=== PATIENT | female | born 1985 | race Caucasian/White ===

== ENCOUNTER → 2018-01-15 | Day surgery (SDC) | payer OTHER ==
--- NOTE | 2018-01-14 19:57 | History & Physical Pre-Op ---
General Information and HPI History of Present Illness: Patient is a 32-year-old 3 para 3 with chronic menorrhagia and presents today for D&C hysteroscopy and NovaSure ablation. She currently is using an IUD to control her bleeding however she is breaking through still having heavy menses. We will remove the IUD prior to the procedure. Allergies/Medications Allergies: Coded Allergies: No Known Allergies (01/14/18) Home Med list Docusate Sodium 100 MG CAPSULE 100 MG PO AT BEDTIME PRN STOOL SOFTENER Ibuprofen 800 MG TABLET 800 MG PO Q6P PRN PAIN SCALE 4-6 Oxycodone HCl/Acetaminophen (Percocet 5-325 MG Tablet) 1 EACH TABLET 1 TAB PO Q4P PRN PAIN SCALE 7-8 Past History Medical History Cardiovascular: hypertension Gastrointestinal: GERD Surgical History Pertinent Surgical History: cholecystectomy, Review of Systems Review of Systems Constitutional: Reports: no symptoms. EENTM: Reports: no symptoms. Cardiovascular: Reports: no symptoms. Respiratory: Reports: no symptoms. GI: Reports: no symptoms. Genitourinary: Reports: see HPI. Musculoskeletal: Reports: no symptoms. Skin: Reports: no symptoms. Neurological/Psychological: Reports: no symptoms. Hematologic/Endocrine: Reports: no symptoms. Immunologic/Allergic: Reports: no symptoms. All Other Systems: Reviewed and Negative Exam & Diagnostic Data Last 24 Hrs of Vital Signs/I&O Intake & Output 01/14 1600 01/14 0800 01/14 0000 Intake Total Output Total Balance Patient 225 lb Weight Physical Exam: HEENT: Normocephalic atraumatic Chest: Clear to auscultation bilaterally Cardiovascular: Normal S1-S2 abdomen: Obese soft nontender Pelvic: Deferred OR Extremities: Mild edema bilaterally Neurologic: Nonfocal Assessment/Plan Assessment/Plan: Menorrhagia Plan: IUD removal, D&C, hysteroscopy, NovaSure ablation As Ranked By This Provider Problem List: 1. Menorrhagia
[~2018-01-15] VITALS: Ht 157.5 cm; Wt 102.1 kg
[~2018-01-15] MED LIST: DOCUSATE SODIU100 M3 PO; IBUPROFEN800 M1 PO; PERCOCET 5-3251 EACH PO
--- NOTE | 2018-01-16 05:13 | ULTRASOUND REPORT ---
EXAMINATION: ULTRASOUND PELVIS/INTRAOPERATIVE ULTRASOUND CLINICAL INDICATION: IUD check. COMPARISON: None TECHNIQUE/FINDINGS: Ultrasound equipment was dedicated to the operating room for the performance of an intraoperative procedure. Single image was acquired and is archived in PACS demonstrating an echogenic intrauterine device in place. Please refer to operative notes for procedural detail. IMPRESSION: Administrative dictation for intraoperative ultrasound and image archiving in PACS. Please refer to operative notes for details.
--- NOTE | 2018-01-24 16:49 | Operative Report ---
Operative/Inv Procedure Report Surgery Date: 01/15/18 Name of Procedure: D&C hysteroscopy NovaSure ablation Pre-Operative Diagnosis: Menorrhagia Post-Operative Diagnosis: Same Estimated Blood Loss: less than 50ml Surgeon/Research Project Coordinator: Rick Tracey MD Anesthesia: laryngeal mask airway Operative/Procedure Note Note: The patient was brought to the operating room placed on the OR table in the dorsal supine position. She was given adequate anesthesia and repositioned in modified dorsal lithotomy. She was prepped and draped in usual sterile fashion. A weighted speculum was inserted into the vagina with help of a Rawlings retractor E single-toothed tenaculum was attached to the anterior lip. The cervix was injected with 1% lidocaine with epinephrine 2-1/2 mL in each quadrant. An endocervical curettage is performed. The uterus is then sounded to 8 cm anteverted. The cervix was serially dilated to accommodate the hysteroscope which was placed into the uterus and activated. No polyps or fibroids were noted both ostia were noted as well. The hysteroscope was removed and the cervix was further dilated and endometrial curettage was performed revealing a moderate amount of tissue. The NovaSure apparatus was placed into the uterus and activated at 123 W of power for approximately 60 seconds at the end of the procedure the instrument was removed intact hemostasis was verified and the instruments removed. The patient was then awakened and sent to recovery in good condition. All needle, sponge, and instrument counts were correct at the end of the procedure 2.
== END ==
LOC: STS 01-01 07:00
DX: N92.1 Excessive and frequent menstruation with irregular cycle (principal); I10 Essential (primary) hypertension; K21.9 Gastro-esophageal reflux disease without esophagitis
CPT/HCPCS: 76998; 81025; 88305; J2250